=== PATIENT | male | born 1965 | race Caucasian/White ===

== ENCOUNTER 2024-01-01 15:55 | Emergency (ER) | payer SELFPAY ==
[~2024-01-01] VITALS: Ht 180.3 cm; Wt 99.0 kg
[2024-01-01] MEDS ORDERED: LANTUS PEN100 U/ML SQ (16:09)
[2024-01-01] MEDS ORDERED: NOVOLOG 100U100 U/ML (16:09)
[2024-01-01] MEDS ORDERED: NS 1,000 ML IV SCH (16:30)
[2024-01-01] MEDS ORDERED: Ondansetron 4 MG/2 ML VIAL IV ONE (16:30)
[2024-01-01 16:43] LABS: BASO # 0.03 K/mm3 (0.02-0.10); EOS # 0.03 K/mm3 (0.04-0.40); EOS % 0.3 % (0.0-4.0); HEMATOCRIT 43.5 % (42.0-52.0); LYMPH# 1.74 K/mm3 (1.50-4.00); MEAN CELL VOLUME 91 fl (78-100); MEAN CORPUSCULAR HEMOGLOBIN 31 pg (27-31); MEAN CORPUSCULAR HGB CONC 35 g/dL (33-37); MONO # 0.45 K/mm3 (0.20-0.80); NEU # 6.53 K/mm3 (1.40-6.50); PLATELET COUNT 227 K/mm3 (130-400); RED CELL DISTRIBUTION WIDTH 12.3 % (11.5-14.5); WHITE BLOOD COUNT 8.8 K/mm3 (4.8-10.8)
[2024-01-01 16:48] LABS: ALBUMIN 4.4 g/dL (3.5-5.0)
[2024-01-01 16:49] LABS: CALCIUM 10.9 mg/dL (8.3-10.5)
[2024-01-01 16:51] LABS: TOTAL PROTEIN 7.5 g/dL (6.4-8.3)
[2024-01-01 16:52] LABS: TOTAL BILIRUBIN 0.5 mg/dL (0.2-1.2)
[2024-01-01] MEDS ORDERED: ZOFRAN ODT4 MG PO (17:45)
[2024-01-01 18:00] LABS: URINE APPEARANCE CLEAR (CLEAR); URINE COLOR YELLOW (YELLOW)
[2024-01-01 18:01] LABS: PH-URINE 5.5 (5.0 - 8.0); URINE BILIRUBIN 2+ (NEGATIVE); URINE BLOOD NEGATIVE (NEGATIVE); URINE GLUCOSE 2+ (NEGATIVE); URINE KETONE 3+ (NEGATIVE); URINE LEUKOCYTE ESTERASE NEGATIVE (NEGATIVE); URINE NITRATE NEGATIVE (NEGATIVE); URINE PROTEIN(semi-quant) 2+ (NEGATIVE); URINE WBC 0-1 /hpf (0-3)
[2024-01-01 18:10] VITALS: BP 148/100
[2024-01-01] MEDS ORDERED: Home Ondansetron ODT 4 MG #2 ODT/PACK PO ONE (18:15)
== END 2024-01-01 18:15 | disposition home or self-care (01) ==
LOC: ED 15:55
PROVIDERS: Physician Assistant
DX: A08.4 Viral intestinal infection, unspecified (principal)
CPT/HCPCS: J2405; J7030